=== PATIENT | male | born 1985 | race Caucasian/White ===

== ENCOUNTER 2019-12-25 22:46 | Emergency (ER) | payer OTHER ==
[2019-12-25 23:06] LABS: BILIRUBIN,URINE NEGATIVE (NEGATIVE); GLUCOSE, URINE (UA) NEGATIVE (NEGATIVE); KETONES,URINE (UA) NEGATIVE (NEGATIVE); LEUKOCYTE ESTERASE, URINE NEGATIVE (NEGATIVE); NITRITE,URINE NEGATIVE (NEGATIVE); OCCULT BLOOD,URINE NEGATIVE (NEGATIVE); PROTEIN,URINE NEGATIVE (NEGATIVE); UROBILINOGEN,URINE 0.2 (NORMAL) E.U./dL (NORMAL)
[2019-12-25 23:09] LABS: CLARITY,URINE CLEAR (CLEAR)
[2019-12-25] MEDS ORDERED: ONDANSETRON ODT 4 MG TABLET TL STA (23:14)
[2019-12-25] MEDS ORDERED: BUTALB/ACETAM/CAFF 50/325/40MG TABLET PO STA (23:14)
--- NOTE | 2019-12-25 23:19 | ED Physician Documentation ---
PD HPI HEADACHE - Stated complaint Stated Complaint: HEADACHE/NAUSEA/FEVER - Chief complaint Chief Complaint: Neuro - History obtained from History obtained from: Patient - History of Present Illness Timing - onset: Today Timing - onset during: Rest Timing - duration: Days (1) Timing - details: Gradual onset Pain level max: 8 Pain level now: 6 Location: Front, Right, Left Quality: Throbbing, Aching. No: Thunderclap Associated symptoms: Fever (states Tmax of 37.1 at home.). No: Stiff neck, Nausea, Vomiting, Weakness, Numbness, Syncope, Seizure, Eye pain, Vision changes, Other Improved by: Rest, Other (tylenol) Worsened by: Light, Noise Contributing factors: No: Anticoagulated, Possible carbon monoxide, Hypertension, Recent illness, Trauma Similar symptoms before: Has not had sx before Recently seen: Not recently seen Review of Systems Constitutional: denies: Fever, Chills Ears: denies: Ear pain Nose: denies: Rhinorrhea / runny nose, Congestion, Epistaxis, Sinus pressure / p ain Throat: denies: Sore throat Cardiac: denies: Chest pain / pressure Respiratory: denies: Dyspnea, Cough GI: reports: Nausea. denies: Abdominal Pain, Vomiting, Diarrhea : denies: Dysuria Skin: denies: Rash Musculoskeletal: denies: Neck pain, Back pain Neurologic: denies: Focal weakness, Numbness, Head injury, LOC PD PAST MEDICAL HISTORY - Past Medical History Past Medical History: No - Past Surgical History Past Surgical History: No - Present Medications Home Medications: Ambulatory Orders Medication Instructions Recorded Confirmed Ondansetron Odt [Zofran] 4 mg TL Q6H PRN #10 tablet 12/26/19 - Allergies Allergies/Adverse Reactions: Allergies Allergy/AdvReac Type Severity Reaction Status Date / Time No Known Drug Allergies Allergy Verified 12/25/19 22:56 - Living Situation Living Situation: reports: With family Living Arrangement: reports: At home - Social History Does the pt have substance abuse?: No - Family History Family history: reports: Non contributory - Immunizations Immunizations are current?: Yes PD ED PE NORMAL - Vitals Vital signs reviewed: Yes - General General: Alert and oriented X 3, No acute distress, Well developed/nourished - HEENT HEENT: Atraumatic, PERRL, Ears normal, Moist mucous membranes, Pharynx benign - Neck Neck: Supple, no meningeal sign, No bony TTP - Cardiac Cardiac: RRR, Strong equal pulses - Respiratory Respiratory: No respiratory distress, Clear bilaterally - Abdomen Abdomen: Soft, Non tender, Non distended - Derm Derm: Warm and dry - Extremities Extremities: No edema - Neuro Neuro: Alert and oriented X 3, elevators inspector 2-12 intact, No motor deficit, No sensory deficit, Normal speech Eye Opening: Spontaneous Motor: Obeys Commands Verbal: Oriented GCS Score: 15 - Psych Psych: Normal mood, Normal affect Results - Vitals Vitals: Vital Signs - 24 hr 12/25/19 12/25/19 22:52 23:54 Temperature 36.4 C L Heart Rate 75 74 Respiratory 14 15 Rate Blood Pressure 137/99 H 126/88 H O2 Saturation 98 100 Oxygen O2 Source Room air - Labs Labs: Laboratory Tests 12/25/19 23:00 Urine Color YELLOW Urine Clarity CLEAR Urine pH 7.0 Ur Specific [place] 1.020 Urine Protein NEGATIVE Urine Glucose (UA) NEGATIVE Urine Ketones NEGATIVE Urine Occult Blood NEGATIVE Urine Nitrite NEGATIVE Urine Bilirubin NEGATIVE Urine Urobilinogen 0.2 (NORMAL) Ur Leukocyte Esterase NEGATIVE Ur Microscopic Review NOT INDICATED Urine Culture Comments NOT INDICATED - Rads (name of study) head CT Radiology: Prelim report reviewed, EMP read contemporaneously, See rad report (normal) PD MEDICAL DECISION MAKING - ED course Complexity details: reviewed results, re-evaluated patient, considered differential, d/w patient ED course: Headache improved with Fioricet. Nausea resolved with Zofran. He states he did drink alcohol over the weekend, was out in the sun and did not drink much water. Possible dehydration? He is well-appearing, nontoxic. Afebrile. No evidence of subarachnoid hemorrhage, tumor. No evidence of encephalitis or meningitis. We did discuss blood work, but patient declines this and he will follow-up with his doctor if he fails to improve as expected. Patient counseled regarding signs and symptoms for which I believe and urgent re-evaluation would be necessary. Patient with good understanding of and agreement to plan and is comfortable going home at this time This document was made in part using voice recognition software. While efforts are made to proofread this document, sound alike and grammatical errors may occur. Departure - Departure Disposition: 01 Home, Self Care Clinical Impression: Headache Qualifiers: Headache type: unspecified Headache chronicity pattern: acute headache Intractability: not intractable Qualified Code(s): R51 - Headache Condition: Good Instructions: ED Cephalgia Unspecified Follow-Up: your,doctor in 3 days [Other] Prescriptions: Ondansetron Odt [Zofran] 4 mg TL Q6H PRN #10 tablet PRN Reason: Nausea / Vomiting Comments: Increase your water intake at home. Return if you worsen. Your head CT does not show any abnormalities tonight. If you are continuing to have symptoms, you should follow-up with your doctor within the next 2 to 3 days and blood work can be performed at that time. Discharge Date/Time: 12/26/19 00:18
[2019-12-25 23:55] VITALS: BP 126/88
--- NOTE | 2019-12-26 00:02 | CT Report ---
Reason: new onset headache Procedure Date: 12/25/2019 Accession Number: [id number] / [id number] Procedure: CT - HEAD WO CPT Code: Final Report FULL RESULT: EXAM: CT HEAD EXAM DATE: 12/25/2019 11:34 PM. CLINICAL HISTORY: New onset headache. COMPARISON: None. TECHNIQUE: Multiaxial CT images were obtained from the foramen magnum to the vertex. Reformats: Sagittal and coronal. IV contrast: None. In accordance with CT protocol optimization, one or more of the following dose reduction techniques were utilized for this exam: automated exposure control, adjustment of mA and/or KV based on patient size, or use of iterative reconstructive technique. FINDINGS: Parenchyma: No intraparenchymal hemorrhage. No evidence of mass, midline shift, or CT findings of acute infarction. Smith-white differentiation is distinct. Extraaxial Spaces: Normal for age. No subdural or epidural collections identified. Ventricles: Normal in size and position. Sinuses and Orbits: Imaged paranasal sinuses, orbits, and mastoids show no significant abnormality. Bones: No evidence of fracture or calvarial defect. Other: None. IMPRESSION: Normal head CT. RADIA
== END 2019-12-26 00:18 | disposition home or self-care (01) ==
LOC: ED 22:46
DX: R51 Headache (principal); R11.0 Nausea
CPT/HCPCS: 70450; 81003; 99284; A9270; Q0162; 81001; 87086

== ENCOUNTER 2020-01-22 10:50 | Outpatient (CLI) | payer OTHER | END 2020-01-22 10:51 | disposition EMS.NT | LOC: EMS 10:50 | PROVIDERS: ATTEND Surgery | DX: R07.89 Other chest pain (principal) ==

== ENCOUNTER 2020-01-22 13:20 | Emergency (ER) | payer OTHER ==
[2020-01-22 14:01] LABS: BASOPHILS % (AUTO) 0.7 %; EOSINOPHILS # (AUTO) 0.1 10^3/uL (0.0-0.7); EOSINOPHILS % (AUTO) 3.1 %; HGB - HEMOGLOBIN 14.9 g/dL (14.0-18.0); LYMPHOCYTES # (AUTO) 1.4 10^3/uL (1.5-3.5); LYMPHOCYTES % (AUTO) 31.3 %; MEAN CORPUSCULAR HEMOGLOBIN 30.4 pg (27.0-31.0); MEAN CORPUSCULAR HGB CONC 34.2 g/dL (32.0-36.0); MEAN PLATELET VOLUME 9.8 fL (7.4-11.4); MONOCYTES # (AUTO) 0.4 10^3/uL (0.0-1.0); MONOCYTES % (AUTO) 9.1 %; NEUTROPHILS # (AUTO) 2.5 10^3/uL (1.5-6.6); NEUTROPHILS % (AUTO) 55.6 %; PLT - PLATELET COUNT 292 10^3/uL (130-450); RED CELL DISTRIBUTION WIDTH 13.2 % (12.0-15.0); WHITE BLOOD COUNT 4.5 x10^3/uL (4.8-10.8)
--- NOTE | 2020-01-22 14:04 | ED Physician Documentation ---
History of Present Illness - Stated complaint Stated Complaint: CP/ANXIETY - Chief complaint Chief Complaint: Cardiac - History obtained from History obtained from: Patient - History of Present Illness Timing: Prior to arrival, How many minutes ago (90) Pain level max: 8 Pain level now: 0 Quality: sharp Radiates to: non radiating - Additonal information Additional information: 34-year-old male presents to the emergency department for evaluation of chest pain. Patient reports that he was in an argument with his about their dog when he began to develop very sharp left midsternal chest pain. It did not radiate. It was not associated with jaw pain arm pain facial asymmetry. Pain lasted about 20 minutes EMS was summoned. At this time patient denies any has any chest pain. he denies any hx of CAD. no hx of similar in the past Patient denies any history of hypertension or diabetes. He takes probiotics only for history of irritable bowel syndrome. He does vape. He denies any illicit drug use. Family history is most significant for an [place] in his mom at the age of 55. His father is alive and well no cardiac history. His grandfather required a mitral valve replacement with a porcine valve. Review of Systems Constitutional: denies: Fever, Chills Throat: denies: Dental pain / toothache Cardiac: reports: Chest pain / pressure. denies: Palpitations, Pedal edema, Calf pain Respiratory: denies: Dyspnea, Cough, Hemoptysis, Wheezing GI: denies: Abdominal Pain, Abdominal Swelling, Nausea, Vomiting : denies: Dysuria Skin: denies: Rash, Lesions Musculoskeletal: denies: Neck pain, Back pain Neurologic: denies: Generalized weakness Psychiatric: denies: Depressed PD PAST MEDICAL HISTORY - Past Medical History Cardiovascular: None Respiratory: None Neuro: None GI: Other (IBS) : None - Past Surgical History Past Surgical History: No - Present Medications Home Medications: Ambulatory Orders Medication Instructions Recorded Confirmed Ondansetron Odt [Zofran] 4 mg TL Q6H PRN #10 tablet 12/26/19 - Allergies Allergies/Adverse Reactions: Allergies Allergy/AdvReac Type Severity Reaction Status Date / Time No Known Drug Allergies Allergy Verified 12/25/19 22:56 - Social History Does the pt have substance abuse?: No - Immunizations Immunizations are current?: Yes PD ED PE NORMAL - General General: Alert and oriented X 3, No acute distress, Well developed/nourished - HEENT HEENT: Atraumatic, PERRL, EOMI - Neck Neck: Supple, no meningeal sign, No adenopathy - Cardiac Cardiac: RRR, No murmur, No gallop, No rub, Strong equal pulses - Respiratory Respiratory: No respiratory distress, Clear bilaterally - Abdomen Abdomen: Normal bowel sounds, Non tender - Back Back: No CVA TTP - Derm Derm: Normal color, Warm and dry, No rash - Extremities Extremities: No deformity, No tenderness to palpate - Neuro Neuro: Alert and oriented X 3, spot sprayer 2-12 intact, No motor deficit Results - Vitals Vitals: Vital Signs - 24 hr 01/22/20 01/22/20 01/22/20 13:33 14:41 15:00 Temperature 36.7 C Heart Rate 90 82 97 Respiratory 16 20 16 Rate Blood Pressure 141/80 H 111/80 127/108 H O2 Saturation 98 97 98 Oxygen O2 Source Room air - EKG (time done) 1328 Rate: Rate (enter#) (87) Rhythm: NSR [place]: Normal Intervals: Normal [place] QRS: Normal Ischemia: Non specific changes (t wave flattening inferior leads) Compare to prior EKG: Old EKG unavailable Computer interpretation: Agree with computer - Labs Labs: Laboratory Tests 01/22/20 01/22/20 01/22/20 13:55 13:55 13:55 WBC 4.5 L RBC 4.90 Hgb 14.9 Hct 43.6 MCV 89.0 MCH 30.4 MCHC 34.2 RDW 13.2 Plt Count 292 MPV 9.8 Neut # (Auto) 2.5 Lymph # (Auto) 1.4 L [place] # (Auto) 0.4 Eos # (Auto) 0.1 Baso # (Auto) 0.0 Absolute Nucleated RBC 0.00 Nucleated RBC % 0.0 Sodium 142 Potassium 3.9 Chloride 106 Carbon Dioxide 24 Anion Gap 12.0 BUN 20 Creatinine 1.0 Estimated GFR (MDRD) 85 L Glucose 132 H Calcium 9.0 Total Bilirubin 0.7 AST 24 ALT 40 Alkaline Phosphatase 47 Troponin I High Sens < 2.3 L Total Protein 7.5 Albumin 4.3 Globulin 3.2 Albumin/Globulin Ratio 1.3 Lipase 42 01/22/20 15:45 WBC RBC Hgb Hct MCV MCH MCHC RDW Plt Count MPV Neut # (Auto) Lymph # (Auto) [place] # (Auto) Eos # (Auto) Baso # (Auto) Absolute Nucleated RBC Nucleated RBC % Sodium Potassium Chloride Carbon Dioxide Anion Gap BUN Creatinine Estimated GFR (MDRD) Glucose Calcium Total Bilirubin AST ALT Alkaline Phosphatase Troponin I High Sens < 2.3 L Total Protein Albumin Globulin Albumin/Globulin Ratio Lipase - Rads (name of study) cxr Radiology: Final report received (No acute cardiopulmonary process.) PD MEDICAL DECISION MAKING - ED course Complexity details: reviewed results, re-evaluated patient, d/w patient ED course: 34-year-old male presents to the emergency department with a chief complaint of chest pain and anxiety following a heated debate with his significant other at home. - Differentials include but not limited to ACS, anxiety, aortic dissection, pneumonia ,PE. - EKG here is nonischemic. His troponin is negative x2. Patient has remained free of chest pain or dyspnea while in the emergency department. - Low suspicion at this time for acute ACS. Recommend close follow-up with his primary care physician on [facility] which may include outpatient stress testing. - Chest x-ray unremarkable no evidence of heart failure pneumonia. - Patient is [place] and PERC criteria negative. Low suspicion for PE. D-dimer deferred. Departure - Departure Disposition: 01 Home, Self Care Clinical Impression: Anxiety Chest pain Qualifiers: Chest pain type: unspecified Qualified Code(s): R07.9 - Chest pain, unspecified Condition: Stable Instructions: ED Anxiety Reaction Ch Comments: Francy I hope you feel better soon. Your EKG and chest x-ray are normal. Your troponin which is a lab to check whether your heart is stressed is also normal. I recommend that you follow-up with your base physician as soon as possible. He may want to order an outpatient stress test. Return to the emergency department if you develop a return of chest pain especially if it radiates to your jaw or arm. Cannot breathe well or have any other emergent concerns.
[2020-01-22 14:14] LABS: ALBUMIN 4.3 g/dL (3.2-5.5); ALBUMIN/GLOBULIN RATIO 1.3 (1.0-2.2); BILIRUBIN,TOTAL 0.7 mg/dL (0.2-1.0); TOTAL PROTEIN 7.5 g/dL (6.7-8.2)
--- NOTE | 2020-01-22 14:18 | XRAY Report ---
PROCEDURE: Chest 1 View X-Ray INDICATIONS: Chest pain TECHNIQUE: One view of the chest was acquired. COMPARISON: None. FINDINGS: Surgical changes and devices: None. Lungs and pleura: No pleural effusions or pneumothorax. Lungs are clear. Mediastinum: Mediastinal contours appear normal. Heart size is normal. Bones and chest wall: No suspicious bony lesions. Overlying soft tissues appear unremarkable. IMPRESSION: Chest without acute cardiopulmonary abnormalities. No focal airspace disease. Reviewed by: Kalpesh Long MD on 01/22/2020 2:17 PM PDT Approved by: Kalpesh Long MD on 01/22/2020 2:17 PM PDT Station ID: [id number]
[2020-01-22 16:26] VITALS: BP 128/89
== END 2020-01-22 16:26 | disposition home or self-care (01) ==
LOC: ED 13:20
DX: R07.9 Chest pain, unspecified (principal); F41.9 Anxiety disorder, unspecified; Z82.49 Family history of ischemic heart disease and other diseases of the circulatory system; F17.290 Nicotine dependence, other tobacco product, uncomplicated
CPT/HCPCS: 36415; 71045; 80053; 83690; 84484; 85025; 93005; 99284; 99285

== ENCOUNTER 2020-02-10 00:35 | Outpatient (CLI) | payer OTHER | END 2020-02-10 23:59 | disposition critical access hospital (66) | LOC: EMS 00:35 | PROVIDERS: ATTEND Surgery | DX: R07.9 Chest pain, unspecified (principal) | CPT/HCPCS: A0425; A0429 ==

== ENCOUNTER 2020-02-10 00:55 | Emergency (ER) | payer OTHER ==
--- NOTE | 2020-02-10 00:46 | ED Physician Documentation ---
History of Present Illness - Stated complaint Stated Complaint: CP/ANXIETY - History obtained from History obtained from: Patient (34 YO AD USN M w Palpitations after he received a phone call that his 86 y/o father is in critical condition at the hospital in [place]. he denies having any chest pain currently. denies pe/dvt, syncope, recent surgeries, stasis or injuries.) Review of Systems Constitutional: reports: Reviewed and negative Eyes: reports: Reviewed and negative Ears: reports: Reviewed and negative Nose: reports: Reviewed and negative Throat: reports: Reviewed and negative Cardiac: reports: Palpitations Respiratory: reports: Reviewed and negative GI: reports: Reviewed and negative : reports: Reviewed and negative Skin: reports: Reviewed and negative Musculoskeletal: reports: Reviewed and negative Neurologic: reports: Reviewed and negative Psychiatric: reports: Reviewed and negative Endocrine: reports: Reviewed and negative Immunocompromised: reports: Reviewed and negative PD PAST MEDICAL HISTORY - Present Medications Home Medications: Ambulatory Orders Medication Instructions Recorded Confirmed Ondansetron Odt [Zofran] 4 mg TL Q6H PRN #10 tablet 12/26/19 - Allergies Allergies/Adverse Reactions: Allergies Allergy/AdvReac Type Severity Reaction Status Date / Time ketorolac [From Toradol] AdvReac Unknown Verified 02/10/20 01:00 PD ED PE NORMAL - Vitals Vital signs reviewed: Yes - General General: Alert and oriented X 3, No acute distress, Well developed/nourished - HEENT HEENT: PERRL, Moist mucous membranes - Neck Neck: Supple, no meningeal sign, No JVD - Cardiac Cardiac: RRR, No murmur, Strong equal pulses - Respiratory Respiratory: No respiratory distress, Clear bilaterally - Abdomen Abdomen: Normal bowel sounds, Soft, Non tender, Non distended - Back Back: No CVA TTP, No spinal TTP - Derm Derm: Normal color, Warm and dry, No rash - Extremities Extremities: No deformity, No tenderness to palpate, Normal ROM s pain, No edema, No calf tenderness / cord - Neuro Neuro: Alert and oriented X 3, train gate attendant 2-12 intact, No motor deficit, No sensory deficit, Normal speech - Psych Psych: Normal mood, Normal affect Results - Vitals Vitals: Vital Signs - 24 hr 02/10/20 02/10/20 02/10/20 01:00 01:03 02:18 Temperature 36.6 C Heart Rate 68 86 78 Respiratory 20 20 16 Rate Blood Pressure 129/86 H 123/86 H 123/92 H O2 Saturation 96 98 100 Oxygen O2 Source Room air - EKG (time done) 01:08 Rate: Other (no stemi) - Labs Labs: Laboratory Tests 02/10/20 01:15 Troponin I High Sens < 2.3 L PD MEDICAL DECISION MAKING - ED course Complexity details: reviewed old records, reviewed results, re-evaluated patient, considered differential (heart score 0, PERC 0. ), d/w patient, other (EKG comparted to prior, similar in appearance. ) Departure - Departure Disposition: 01 Home, Self Care Clinical Impression: Atypical chest pain Condition: Stable Instructions: ED Chest Pain Atypical Unkn Cause Follow-Up: your, doctor [Other] - Tomorrow Comments: follow up with your doctor tomorrow. Discharge Date/Time: 02/10/20 02:21
[2020-02-10 02:19] VITALS: BP 123/92
--- NOTE | 2020-02-10 09:06 | XRAY Report ---
PROCEDURE: Chest 1 View X-Ray INDICATIONS: cp TECHNIQUE: One view of the chest was acquired. COMPARISON: Chest x-ray 01/22/2020 FINDINGS: Surgical changes and devices: None. Lungs and pleura: No pleural effusions or pneumothorax. Lungs are clear. Mediastinum: Mediastinal contours appear normal. Heart size is normal. Bones and chest wall: No suspicious bony lesions. Overlying soft tissues appear unremarkable. IMPRESSION: No acute pulmonary process. Reviewed by: Kamila Palomino MD on 02/10/2020 9:04 AM PDT Approved by: Kamila Palomino MD on 02/10/2020 9:04 AM PDT Station ID: [id number]
== END 2020-02-10 02:21 | disposition home or self-care (01) ==
LOC: EDUNIT# → ED 00:55
DX: R07.89 Other chest pain (principal); R00.2 Palpitations
CPT/HCPCS: 36415; 71045; 84484; 93005; 99283; 99284

== ENCOUNTER 2020-05-22 23:39 | Emergency (ER) | payer OTHER ==
[2020-05-23] MEDS ORDERED: SODIUM CHLORIDE 0.9% 1,000 ML IV STA (00:20)
--- NOTE | 2020-05-23 00:23 | ED Physician Documentation ---
History of Present Illness - Stated complaint Stated Complaint: BLOODY DIARRHEA - Chief complaint Chief Complaint: Abd Pain - Additonal information Additional information: The patientPresents with complaints of bloody diarrhea. This started at about 4:00 in the afternoon. Initially his stools were soft but now they have become liquid. He reports intermittent cramping pain and the urge to have a bowel movement. He subsequently passes the above-noted stool. He has had some mild nausea but no vomiting. He denies fevers, chills or sweats. He has been diagnosed with irritable bowel syndrome in the past. Additionally, he was treated once for colitis. He has never had a colonoscopy. He rarely drinks alcohol. He has not had any unpasteurized dairy products. He is not aware of any family history of celiac disease. Review of Systems Constitutional: reports: Reviewed and negative Eyes: reports: Reviewed and negative Ears: reports: Reviewed and negative Nose: reports: Reviewed and negative Throat: reports: Reviewed and negative Cardiac: reports: Reviewed and negative Respiratory: reports: Reviewed and negative GI: reports: Nausea, Diarrhea, Bloody / black stool : reports: Reviewed and negative Skin: reports: Reviewed and negative Musculoskeletal: reports: Reviewed and negative Neurologic: reports: Reviewed and negative Psychiatric: reports: Reviewed and negative Endocrine: reports: Reviewed and negative Immunocompromised: reports: Reviewed and negative PD PAST MEDICAL HISTORY - Past Medical History Cardiovascular: None Respiratory: None Neuro: None GI: Other : None - Past Surgical History Past Surgical History: No - Present Medications Home Medications: Ambulatory Orders Medication Instructions Recorded Confirmed No Known Home Medications 05/22/20 05/22/20 - Allergies Allergies/Adverse Reactions: Allergies Allergy/AdvReac Type Severity Reaction Status Date / Time ketorolac [From Toradol] AdvReac Unknown Verified 05/22/20 23:45 - Social History Does the pt smoke?: Yes Smoking Status: Current every day smoker Does the pt drink ETOH?: Yes Does the pt have substance abuse?: No - Immunizations Immunizations are current?: Yes - POLST Patient has POLST: No PD ED PE NORMAL - Vitals Vital signs reviewed: Yes - General General: Alert and oriented X 3, No acute distress - HEENT HEENT: PERRL - Neck Neck: Supple, no meningeal sign - Cardiac Cardiac: RRR, No murmur - Respiratory Respiratory: Clear bilaterally - Abdomen Abdomen: Normal bowel sounds, Soft, Non tender, Non distended, No organomegaly - Rectal Rectal: Other (No external hemorrhoids or anal fissures noted. Normal sphincter tone. No palpable rectal masses. Guaiac positive.) - Derm Derm: Warm and dry - Extremities Extremities: No deformity - Neuro Neuro: Alert and oriented X 3 - Psych Psych: Normal mood, Normal affect Results - Vitals Vitals: Vital Signs - 24 hr 05/22/20 23:42 Temperature 36.4 C L Heart Rate 77 Respiratory 16 Rate Blood Pressure 117/86 H O2 Saturation 99 Oxygen O2 Source Room air - Labs Labs: Microbiology 05/23/20 01:25 Occult Blood - Final Stool Laboratory Tests 05/23/20 05/23/20 05/23/20 00:33 00:33 01:13 WBC 5.4 RBC 4.83 Hgb 14.4 Hct 43.1 MCV 89.2 MCH 29.8 MCHC 33.4 RDW 13.2 Plt Count 292 MPV 9.6 Neut # (Auto) 2.2 Lymph # (Auto) 2.4 [place] # (Auto) 0.5 Eos # (Auto) 0.3 Baso # (Auto) 0.0 Absolute Nucleated RBC 0.00 Nucleated RBC % 0.0 Sodium 141 Potassium 3.9 Chloride 105 Carbon Dioxide 23 Anion Gap 13.0 BUN 18 Creatinine 1.0 Estimated GFR (MDRD) 85 L Glucose 111 H Calcium 9.1 Total Bilirubin 0.4 AST 22 ALT 32 Alkaline Phosphatase 45 Total Protein 7.2 Albumin 4.1 Globulin 3.1 Albumin/Globulin Ratio 1.3 Lipase 51 Urine Color YELLOW Urine Clarity CLEAR Urine pH 6.5 Ur Specific [place] 1.010 Urine Protein NEGATIVE Urine Glucose (UA) NEGATIVE Urine Ketones NEGATIVE Urine Occult Blood NEGATIVE Urine Nitrite NEGATIVE Urine Bilirubin NEGATIVE Urine Urobilinogen 0.2 (NORMAL) Ur Leukocyte Esterase NEGATIVE Ur Microscopic Review NOT INDICATED Urine Culture Comments NOT INDICATED - Rads (name of study) No standard instances Radiology: Prelim report reviewed, EMP read contemporaneously (Impression: Colitis.) PD MEDICAL DECISION MAKING - ED course Complexity details: reviewed results (As noted, patient has the appearance of sigmoid colitis on CT imaging and guaiac positive stool.I reviewed the results of the patient's studies with him. He was encouraged to have close follow-up with his primary care provider in order to request referral to gastroenterology.), re-evaluated patient, considered differential (Infectious versus inflammatory versus ischemic colitis. Given his history of prior events and no previous work-up, referral to gastroenterology and consideration of colonoscopy is warranted.), d/w patient, other Departure - Departure Disposition: 01 Home, Self Care Clinical Impression: Colitis, Stool guaiac positive Condition: Stable Record reviewed to determine appropriate education?: Yes Instructions: ED Abdominal Pain Unkn Cause Male Follow-Up: ROSA VELASQUEZ [Primary Care Provider] - Within 3 Days (Given the recurring bouts of blood in your stool, I feel you would benefit from a gastroenterology referral prior to deployment.)
[2020-05-23 00:38] LABS: BASOPHILS % (AUTO) 0.7 %; EOSINOPHILS # (AUTO) 0.3 10^3/uL (0.0-0.7); HGB - HEMOGLOBIN 14.4 g/dL (14.0-18.0); LYMPHOCYTES # (AUTO) 2.4 10^3/uL (1.5-3.5); LYMPHOCYTES % (AUTO) 43.3 %; MEAN CORPUSCULAR HEMOGLOBIN 29.8 pg (27.0-31.0); MEAN CORPUSCULAR HGB CONC 33.4 g/dL (32.0-36.0); MEAN CORPUSCULAR VOLUME 89.2 fL (80.0-94.0); MEAN PLATELET VOLUME 9.6 fL (7.4-11.4); MONOCYTES # (AUTO) 0.5 10^3/uL (0.0-1.0); MONOCYTES % (AUTO) 9.9 %; NEUTROPHILS # (AUTO) 2.2 10^3/uL (1.5-6.6); NEUTROPHILS % (AUTO) 40.7 %; PLT - PLATELET COUNT 292 10^3/uL (130-450); RED BLOOD COUNT 4.83 10^6/uL (4.70-6.10); RED CELL DISTRIBUTION WIDTH 13.2 % (12.0-15.0); WHITE BLOOD COUNT 5.4 x10^3/uL (4.8-10.8)
[2020-05-23] MEDS ORDERED: IOVERSOL 320 100 ML VIAL IVP ONE ×2 (00:38→01:04)
[2020-05-23 00:50] LABS: ALBUMIN 4.1 g/dL (3.2-5.5); ALBUMIN/GLOBULIN RATIO 1.3 (1.0-2.2); BILIRUBIN,TOTAL 0.4 mg/dL (0.2-1.0); CALCIUM 9.1 mg/dL (8.5-10.3); TOTAL PROTEIN 7.2 g/dL (6.7-8.2)
[2020-05-23 01:20] LABS: BILIRUBIN,URINE NEGATIVE (NEGATIVE); GLUCOSE, URINE (UA) NEGATIVE (NEGATIVE); KETONES,URINE (UA) NEGATIVE (NEGATIVE); LEUKOCYTE ESTERASE, URINE NEGATIVE (NEGATIVE); NITRITE,URINE NEGATIVE (NEGATIVE); OCCULT BLOOD,URINE NEGATIVE (NEGATIVE); PH,URINE 6.5 PH (5.0-7.5); PROTEIN,URINE NEGATIVE (NEGATIVE); UROBILINOGEN,URINE 0.2 (NORMAL) E.U./dL (NORMAL)
[2020-05-23 01:21] LABS: CLARITY,URINE CLEAR (CLEAR)
[2020-05-23 02:01] VITALS: BP 119/76
--- NOTE | 2020-05-23 08:41 | CT Report ---
PROCEDURE: Abdomen/Pelvis W INDICATIONS: Abdominal pain, acute, nonlocalized CONTRAST: IV CONTRAST: Optiray 320 ml: 100 PO CONTRAST: *NO PO CONTRAST TECHNIQUE: After the administration of intravenous contrast, 5 mm thick sections acquired from the diaphragms to the symphysis. 5 mm thick coronal and sagittal reformats were acquired. For radiation dose reducti on, the following was used: automated exposure control, adjustment of mA and/or kV according to jory ent size. COMPARISON: None. FINDINGS: Image quality: Excellent. ABDOMEN: Lung bases: Lung bases are clear. Heart size is normal. Solid organs: There is diffuse hypoattenuation of the liver consistent with fatty infiltration. Gallb ladder is nondistended without calcified gallstones. Biliary system is non dilated. The spleen is no rmal in size. Pancreas enhances normally without peripancreatic fat stranding or fluid collections. No adrenal nodules. Kidneys demonstrate no hydronephrosis. Peritoneum and bowel: Small bowel loops demonstrate normal wall thickness and caliber. There are phill gical sutures adjacent to the cecum compatible with prior appendectomy. There are long segments of co lonic wall thickening beginning within the mid ascending colon and involving the transverse, descendi ng, and rectosigmoid colon with a short segment of relative sparing in the sigmoid colon. Associated mild pericolic fat stranding and mucosal enhancement demonstrated. The findings are compatible with a n infectious or inflammatory colitis. Colonic diverticulosis demonstrated without acute diverticuliti s. No free fluid or air. Nodes and vessels: No retroperitoneal or mesenteric adenopathy by size criteria. Aorta and inferior vena cava are normal in size. Miscellaneous: No ventral hernias. PELVIS: Genitourinary: Bladder wall thickness is normal. Miscellaneous: No inguinal hernias or adenopathy. Bones: No suspicious bony lesions. No vertebral body compression fractures. IMPRESSION: 1. Long-segment colitis involving the majority of the colon beginning at the level of the mid ascendi ng colon. Findings are likely infectious or inflammatory in etiology. 2. Hepatic steatosis. Concordant with preliminary interpretation. Reviewed by: Antony Heredia MD on 05/23/2020 8:40 AM PDT Approved by: Antony Heredia MD on 05/23/2020 8:40 AM PDT Station ID: [id number]
== END 2020-05-23 02:01 | disposition home or self-care (01) ==
LOC: ED 23:39
DX: K52.9 Noninfective gastroenteritis and colitis, unspecified (principal); R19.5 Other fecal abnormalities; F17.200 Nicotine dependence, unspecified, uncomplicated
CPT/HCPCS: 36415; 74177; 80053; 81003; 82272; 83690; 85025; 96360; 99284; Q9967; 81001; 87086

== ENCOUNTER 2021-02-15 18:53 | Emergency (ER) | payer OTHER ==
[2021-02-15 19:04] VITALS: BP 135/95
--- NOTE | 2021-02-15 19:16 | ED Physician Documentation ---
History of Present Illness - Stated complaint Stated Complaint: FALL ON STAIRS/INJ TO NOSE - Chief complaint Chief Complaint: Heent - History obtained from History obtained from: Patient - History of Present Illness Timing: Today, How many hours ago (2) Pain level max: 6 Pain level now: 4 - Additonal information Additional information: 35-year-old male presents to the emergency department stating that he hit the bridge of his nose on a car door earlier today. Now has bruising and swelling. Had a small amount of a nosebleed earlier. This has since resolved. Nothing makes it better or worse. No neck or back pain. No headache. No difficulty breathing. Review of Systems Constitutional: denies: Fever, Chills Eyes: denies: Decreased vision, Photophobia Ears: denies: Loss of hearing, Ear pain, Drainage/discharge Throat: denies: Sore throat Skin: denies: Rash Neurologic: denies: Headache PD PAST MEDICAL HISTORY - Past Medical History Cardiovascular: None Respiratory: None Neuro: None GI: Other : None - Past Surgical History Past Surgical History: No - Present Medications Home Medications: Ambulatory Orders Medication Instructions Recorded Confirmed Dextroamphetamine/Amphetamine 10 mg PO QPM 02/15/21 02/15/21 [Adderall 10 mg Tablet] Dextroamphetamine/Amphetamine 20 mg PO DAILY 02/15/21 02/15/21 [Adderall 20 mg Tablet] - Allergies Allergies/Adverse Reactions: Allergies Allergy/AdvReac Type Severity Reaction Status Date / Time ketorolac [From Toradol] AdvReac Unknown Verified 02/15/21 19:04 - Social History Does the pt smoke?: Yes Smoking Status: Current every day smoker Does the pt drink ETOH?: Yes Does the pt have substance abuse?: No - Immunizations Immunizations are current?: Yes - POLST Patient has POLST: No PD ED PE NORMAL - Vitals Vital signs reviewed: Yes - General General: Alert and oriented X 3, No acute distress - HEENT HEENT: Moist mucous membranes, Pharynx benign, Other (Mild swelling and ecchymosis to the bridge of the nose. No septal hematomas. No active bleeding. No deformity.) - Neck Neck: Supple, no meningeal sign - Respiratory Respiratory: No respiratory distress - Derm Derm: Warm and dry - Neuro Neuro: Alert and oriented X 3, drum stenciler 2-12 intact, No motor deficit, No sensory deficit, Normal speech - Psych Psych: Normal mood, Normal affect Results - Vitals Vitals: Vital Signs - 24 hr 02/15/21 19:01 Temperature 36.4 C L Heart Rate 91 Respiratory 16 Rate Blood Pressure 135/95 H O2 Saturation 96 Oxygen O2 Source Room air PD MEDICAL DECISION MAKING - ED course Complexity details: considered differential, d/w patient ED course: Patient with a nasal contusion versus Nasal fracture. We will hold off x-rays at this time and see how he progresses over the next week. He can use Motrin or Tylenol as needed for pain. No septal hematomas. No evidence of orbital fracture. No evidence of sinus fracture. Patient counseled regarding signs and symptoms for which I believe and urgent re-evaluation would be necessary. Patient with good understanding of and agreement to plan and is comfortable going home at this time This document was made in part using voice recognition software. While efforts are made to proofread this document, sound alike and grammatical errors may occur. Departure - Departure Disposition: 01 Home, Self Care Clinical Impression: Nasal contusion Qualifiers: Encounter type: initial encounter Qualified Code(s): S00.33XA - Contusion of nose, initial encounter Condition: Good Instructions: ED Contusion Nasal Vs Fx No X Ray Follow-Up: ROSA VELASQUEZ [Primary Care Provider] - Within 1 week Comments: You can use Motrin or Tylenol as needed for pain. Follow-up with your doctor in 1 week for repeat evaluation. Return if you worsen. Discharge Date/Time: 02/15/21 19:52
== END 2021-02-15 19:52 | disposition home or self-care (01) ==
LOC: ED 18:53
DX: S00.33XA Contusion of nose, initial encounter (principal); W22.09XA Striking against other stationary object, initial encounter; Y92.810 Car as the place of occurrence of the external cause; F17.200 Nicotine dependence, unspecified, uncomplicated
CPT/HCPCS: 99281; 99282

== ENCOUNTER 2021-03-14 04:10 | Outpatient (CLI) | payer OTHER | END 2021-03-14 04:11 | disposition EMS.NT | LOC: EMS 04:10 | DX: R07.89 Other chest pain (principal); M25.512 Pain in left shoulder ==

== ENCOUNTER 2021-03-14 05:07 | Emergency (ER) | payer OTHER ==
--- NOTE | 2021-03-14 05:22 | ED Physician Documentation ---
PD HPI CHEST PAIN - Stated complaint Stated Complaint: CP - Chief complaint Chief Complaint: Cardiac - History obtained from History obtained from: Patient - History of Present Illness Timing - onset: Enter time (03:00), Today Timing - onset during: Sleep Timing - details: Abrupt onset Pain level now: 3 Quality: Pain Location: Left shoulder/arm Improved by: Nothing Worsened by: Inspiration, Movement (movement of left shoulder partially reproduces symptoms) Associated symptoms: Cough (nonproductive). No: Shortness of air, Diaphoresis, Nausea, Vomiting, Feeling faint / dizzy, General Weakness, Palpitations Similar symptoms before: Has not had sx before Recently seen: Not recently seen - Additional information Additional information: BIBA. at 3 am, patient woke from sleep with left shoulder pain that eventually radiated to left upper back and left upper anterior chest. He is COVID vaccinated. Pain has partial pleuritic component and shoulder pain is partially reproducible with movement at left shoulder. Review of Systems Constitutional: reports: Reviewed and negative Cardiac: reports: Chest pain / pressure. denies: Palpitations Respiratory: reports: Reviewed and negative GI: reports: Reviewed and negative Musculoskeletal: reports: Joint pain. denies: Extremity pain, Extremity swelling, Joint swelling Neurologic: reports: Reviewed and negative PD PAST MEDICAL HISTORY - Past Medical History Cardiovascular: None Respiratory: None Neuro: None GI: Other : None Psych: ADD/ADHD - Past Surgical History Past Surgical History: No General: Appendectomy - Present Medications Home Medications: Ambulatory Orders Medication Instructions Recorded Confirmed Dextroamphetamine/Amphetamine 30 mg PO 03/14/21 [Adderall Xr 30 mg Capsule] - Allergies Allergies/Adverse Reactions: Allergies Allergy/AdvReac Type Severity Reaction Status Date / Time ketorolac [From Toradol] AdvReac Unknown Verified 03/14/21 05:30 - Social History Does the pt smoke?: Yes Smoking Status: Current every day smoker Does the pt drink ETOH?: Yes Does the pt have substance abuse?: No - Immunizations Immunizations are current?: Yes - POLST Patient has POLST: No PD ED PE NORMAL - Vitals Vital signs reviewed: Yes - General General: Alert and oriented X 3, No acute distress, Well developed/nourished - Neck Neck: Supple, no meningeal sign - Cardiac Cardiac: RRR, No murmur, No gallop, No rub - Respiratory Respiratory: No respiratory distress, Clear bilaterally - Abdomen Abdomen: Soft, Non tender - Extremities Extremities: No edema Results - Vitals Vitals: Vital Signs - 24 hr 03/14/21 03/14/21 05:19 07:11 Temperature 36.6 C 36.7 C Heart Rate 87 73 Respiratory 19 18 Rate Blood Pressure 117/87 H 114/87 H O2 Saturation 98 100 Oxygen O2 Source Room air - EKG (time done) No standard instances Rate: Rate (enter#) (77) Rhythm: NSR [place]: Normal Intervals: Normal MD QRS: Normal Ischemia: Normal ST segments (i), T wave inversion (isolated III) - Labs Labs: Laboratory Tests 03/14/21 03/14/21 03/14/21 06:13 06:13 06:13 WBC 6.1 RBC 4.47 L Hgb 13.2 L Hct 40.1 L MCV 89.7 MCH 29.5 MCHC 32.9 RDW 13.4 Plt Count 298 MPV 9.3 Neut # (Auto) 2.8 Lymph # (Auto) 2.3 [place] # (Auto) 0.6 Eos # (Auto) 0.4 Baso # (Auto) 0.0 Absolute Nucleated RBC 0.00 Nucleated RBC % 0.0 Sodium 139 Potassium 3.7 Chloride 105 Carbon Dioxide 23 Anion Gap 11.0 BUN 14 Creatinine 1.0 Estimated GFR (MDRD) 84 L Glucose 99 Calcium 8.6 Total Bilirubin 0.4 AST 28 ALT 42 Alkaline Phosphatase 43 Troponin I High Sens 7.3 Total Protein 7.0 Albumin 3.8 Globulin 3.2 Albumin/Globulin Ratio 1.2 Lipase 40 - Rads (name of study) chest xray Radiology: Prelim report reviewed, See rad report PD MEDICAL DECISION MAKING - ED course Complexity details: reviewed old records, reviewed results, re-evaluated patient, considered differential, d/w patient ED course: PERC negative. no concerning findings on CXR, EKG, blood tests including high sensitivity troponin. Symptoms resolved during ED stay without intervention. Etiology of symptoms not apparent at this time, encouraged to follow up with PMD, return if worse Departure - Departure Disposition: 01 Home, Self Care Clinical Impression: Chest pain Condition: Good Instructions: ED Chest Pain Atypical Unkn Cause Follow-Up: ORLIN Sterling [Provider Group] Discharge Date/Time: 03/14/21 07:13
[2021-03-14 06:22] LABS: BASOPHILS % (AUTO) 0.7 %; EOSINOPHILS # (AUTO) 0.4 10^3/uL (0.0-0.7); HCT - HEMATOCRIT 40.1 % (42.0-52.0); HGB - HEMOGLOBIN 13.2 g/dL (14.0-18.0); LYMPHOCYTES # (AUTO) 2.3 10^3/uL (1.5-3.5); LYMPHOCYTES % (AUTO) 36.8 %; MEAN CORPUSCULAR HEMOGLOBIN 29.5 pg (27.0-31.0); MEAN CORPUSCULAR HGB CONC 32.9 g/dL (32.0-36.0); MEAN CORPUSCULAR VOLUME 89.7 fL (80.0-94.0); MEAN PLATELET VOLUME 9.3 fL (7.4-11.4); MONOCYTES # (AUTO) 0.6 10^3/uL (0.0-1.0); MONOCYTES % (AUTO) 9.5 %; NEUTROPHILS # (AUTO) 2.8 10^3/uL (1.5-6.6); NEUTROPHILS % (AUTO) 45.7 %; PLT - PLATELET COUNT 298 10^3/uL (130-450); RED BLOOD COUNT 4.47 10^6/uL (4.70-6.10); RED CELL DISTRIBUTION WIDTH 13.4 % (12.0-15.0); WHITE BLOOD COUNT 6.1 x10^3/uL (4.8-10.8)
[2021-03-14 06:34] LABS: BILIRUBIN,TOTAL 0.4 mg/dL (0.2-1.0); CALCIUM 8.6 mg/dL (8.5-10.3); POTASSIUM 3.7 mmol/L (3.5-5.0)
[2021-03-14 06:35] LABS: ALBUMIN 3.8 g/dL (3.2-5.5); ALBUMIN/GLOBULIN RATIO 1.2 (1.0-2.2)
[2021-03-14 07:12] VITALS: BP 114/87
--- NOTE | 2021-03-14 08:54 | XRAY Report ---
PROCEDURE: Chest 2 View X-Ray INDICATIONS: chest pain TECHNIQUE: 2 view(s) of the chest. COMPARISON: 02/10/2020 FINDINGS: Surgical changes and devices: None. Lungs and pleura: No pleural effusions or pneumothorax. Lungs are clear. Mediastinum: Mediastinal contours are normal. Heart size is normal. Bones and chest wall: No suspicious bony abnormalities. Soft tissues appear unremarkable. IMPRESSION: No acute cardiopulmonary findings Note: Final report is concordant with preliminary report provided by [email or web address] Reviewed by: Neymar Felton MD on 03/14/2021 7:53 AM AKDT Approved by: Neymar Felton MD on 03/14/2021 7:53 AM AKDT Station ID: [id number]
== END 2021-03-14 07:13 | disposition home or self-care (01) ==
LOC: EDUNIT# → ED 05:07
DX: R07.9 Chest pain, unspecified (principal); F17.200 Nicotine dependence, unspecified, uncomplicated
CPT/HCPCS: 36415; 80053; 83690; 84484; 85025; 93005; 99284

== ENCOUNTER 2022-11-23 11:49 | Outpatient (CLI) | payer OTHER | END 2022-11-23 23:59 | disposition critical access hospital (66) | LOC: EMS 11:49 | DX: R20.0 Anesthesia of skin (principal); M79.632 Pain in left forearm | CPT/HCPCS: A0425; A0429 ==

== ENCOUNTER 2022-11-23 12:12 | Emergency (ER) | payer OTHER ==
--- NOTE | 2022-11-23 13:07 | ED Physician Documentation ---
History of Present Illness - Stated complaint Stated Complaint: LEFT ARM NUMBNESS - Chief complaint Chief Complaint: Ext Problem - History obtained from History obtained from: Patient - Additonal information Additional information: Right-handed gentleman developed a burning pain encompassing the right hand this morning at 3:30 in the morning. Subsequently the pain radiated up towards the elbow on the medial side. He feels numbness and paresthesias in that area especially the medial side of the arm. There is no associated neck pain. There is no injury. He is never had this before. He was seen at the walk-in clinic and given steroids without specific diagnosis which have not been helpful, but its only been a few hours. PD PAST MEDICAL HISTORY - Past Medical History Past Medical History: Yes Cardiovascular: None Respiratory: None Neuro: None GI: Other : None HEENT: None Psych: ADD/ADHD Musculoskeletal: None - Past Surgical History Past Surgical History: Yes General: Appendectomy - Present Medications Home Medications: Ambulatory Orders Medication Instructions Recorded Confirmed Dextroamphetamine/Amphetamine 30 mg PO DAILY 03/14/21 [Adderall Xr 30 mg Capsule] - Allergies Allergies/Adverse Reactions: Allergies Allergy/AdvReac Type Severity Reaction Status Date / Time ketorolac [From Toradol] AdvReac Unknown Verified 11/23/22 12:19 - Social History Does the pt smoke?: Yes Smoking Status: Current every day smoker Does the pt drink ETOH?: Yes Does the pt have substance abuse?: No - Immunizations Immunizations are current?: Yes - POLST Patient has POLST: No PD ED PE NORMAL - Vitals Vital signs reviewed: Yes - General General: Alert and oriented X 3, No acute distress - Neck Neck: No bony TTP - Extremities Extremities: Other (see, mdm, txt box too small) - Neuro Neuro: Alert and oriented X 3, Normal speech Results - Vitals Vitals: Vital Signs - 24 hr 11/23/22 11/23/22 12:15 12:43 Temperature 36.1 C L Heart Rate 89 Respiratory 16 15 Rate Blood Pressure 138/87 H O2 Saturation 97 Oxygen O2 Source Room air PD Medical Decision Making - ED course ED course: Mildly decreased sensation in a left ulnar distribution and symptoms are exacerbated with pressure near the medial epicondyle. Full range of motion without tenderness otherwise of the elbow wrist and hand. Thumb extension, interosseous strength, flexion extension of the wrist, toe stripper strength, are all intact and symmetric. This is most consistent to me with an ulnar neuropathy. Radial pulses are equal with normal perfusion of the digits. Does not seem like a cervical radiculopathy given the lack of neck pain and worsening with pressure on the ulnar nerve. 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 The steroids may be helpful but take usually about 12 hours to work. In addition we are giving you a sling that she can wear when up and around to remind yourself to take pressure off the elbow. Reasonable to follow-up with a neurologist for EMG testing if symptoms are persistent, followed by an orthopedist for consideration for management after that. You can arrange these referrals with your primary care physician. Return for new or worsening symptoms.
[2022-11-23 13:28] VITALS: BP 130/81
== END 2022-11-23 13:26 | disposition home or self-care (01) ==
LOC: EDUNIT# → ED 12:12
DX: G56.22 Lesion of ulnar nerve, left upper limb (principal); F17.200 Nicotine dependence, unspecified, uncomplicated
CPT/HCPCS: 99283

== ENCOUNTER 2022-12-16 23:26 | Outpatient (CLI) | payer OTHER | END 2022-12-16 23:59 | disposition critical access hospital (66) | LOC: EMS 23:26 | DX: F41.9 Anxiety disorder, unspecified (principal); F32.A Depression, unspecified | CPT/HCPCS: A0425; A0429 ==

== ENCOUNTER 2022-12-16 23:47 | Emergency (ER) | payer OTHER ==
[2022-12-17 01:44] VITALS: BP 142/103
--- NOTE | 2022-12-17 02:22 | ED Physician Documentation ---
PD HPI MHE - Stated complaint Stated Complaint: ANXIETY, MHE - Chief complaint Chief Complaint: MHE - History obtained from History obtained from: Patient - Additional information Additional information: 36-year-old man with history of depression and ADHD presents with anxiety and depression tonight. Patient states that he has been in multiple arguments with his over the past couple of days and had a really stressful day today. He left the home without warning and she called 911 and police and EMS became involved. Patient denies SI/HI/AVH and states he "just want someone to talk to". PD PAST MEDICAL HISTORY - Past Medical History Cardiovascular: None Respiratory: None Neuro: None GI: Other : None HEENT: None Psych: ADD/ADHD Musculoskeletal: None - Past Surgical History Past Surgical History: Yes General: Appendectomy - Present Medications Home Medications: Ambulatory Orders Medication Instructions Recorded Confirmed Dextroamphetamine/Amphetamine 30 mg PO DAILY 03/14/21 [Adderall Xr 30 mg Capsule] - Allergies Allergies/Adverse Reactions: Allergies Allergy/AdvReac Type Severity Reaction Status Date / Time ketorolac [From Toradol] AdvReac Unknown Verified 11/23/22 12:19 - Social History Does the pt smoke?: Yes Smoking Status: Current every day smoker Does the pt drink ETOH?: Yes Does the pt have substance abuse?: No - Immunizations Immunizations are current?: Yes - POLST Patient has POLST: No PD ED PE NORMAL - Vitals Vital signs reviewed: Yes - General General: Alert and oriented X 3, No acute distress, Well developed/nourished - HEENT HEENT: Atraumatic, PERRL, EOMI - Neck Neck: Supple, no meningeal sign - Derm Derm: Normal color, Warm and dry - Neuro Neuro: Alert and oriented X 3, No motor deficit, No sensory deficit Eye Opening: Spontaneous Motor: Obeys Commands Verbal: Oriented GCS Score: 15 - Psych Psych: Other (depressed mood) Results - Vitals Vitals: Vital Signs - 24 hr 12/16/22 12/17/22 23:53 00:00 Temperature 36.8 C Heart Rate 97 87 Respiratory 17 17 Rate Blood Pressure 120/90 H 142/103 H O2 Saturation 96 99 Oxygen O2 Source Room air PD Medical Decision Making - ED course ED course: 28-year-old man presents with depression and anxiety as well as concerns over verbal arguments with his . Denies SI/HI/AVH. We discussed coping strategies and I provided mental health outpatient resources. Plan is for [place] Return precautions given. Departure - Departure Disposition: 01 Home, Self Care Clinical Impression: Anxiety Condition: Stable Instructions: ED Depression Comments: You are seen in the emergency department for mental health evaluation. Please [place] to mental health resources. I am also providing some options for in-person and telehealth counselors below. Return to the emergency department if you have new or worsening symptoms or other concerns. Prioritize Your Mental Health | [employer] [facility] [email or web address] [facility] [phone] [place] [address] Closed Opens noon DIRECTIONS WEBSITE [facility] [address], [place] Closed Opens 9 AM DIRECTIONS WEBSITE [facility] [address], [place] DIRECTIONS WEBSITE Sheryl Chowdhury Psychologist [address], [place] DIRECTIONS WEBSITE
== END 2022-12-17 02:27 | disposition home or self-care (01) ==
LOC: EDUNIT# → ED 23:47
DX: F41.9 Anxiety disorder, unspecified (principal); F17.200 Nicotine dependence, unspecified, uncomplicated
CPT/HCPCS: 99283